=== PATIENT | male | born 1980 | race Caucasian/White ===

== ENCOUNTER 2019-12-04 17:43 | Emergency (ER) | payer OTHER ==
[2019-12-04 18:00] VITALS: BP 129/82; PULSE 63; RESP 18; TEMP 98.2
[2019-12-04] MEDS ORDERED: LIDOCAINE 1% INJ 10MG/ML (20 ML MDV) SQ ONE (18:24)
--- NOTE | 2019-12-04 18:34 | ED ---
Wound/Laceration HPI - General Chief Complaint: Wound/Laceration Stated Complaint: Finger laceration Time Seen by Provider: 12/04/19 18:12 Source: patient, RN notes reviewed, old records reviewed Mode of arrival: ambulatory Limitations: no limitations - History of Present Illness Initial Comments: Patient is a 38-year-old male presents returns today with a laceration involving the right hand between the web space of the fourth and fifth digit after cutting it on a bult on the edge of his pool. Patient TDAP is up to date from urgent care today, whom sent him here. Patient has full ROM of the finger and denies diminished sensation. - Related Data Previous Rx's Medication Instructions Recorded Cephalexin [Keflex] 500 mg PO Q8HR #21 cap 12/04/19 Allergies Allergy/AdvReac Type Severity Reaction Status Date / Time No Known Allergies Allergy Verified 12/04/19 18:00 Review of Systems ROS Statement: Those systems with pertinent positive or pertinent negative responses have been documented in the HPI. ROS Other: All systems not noted in ROS Statement are negative. Past Medical History Past Medical History: No Reported History History of Any Multi-Drug Resistant Organisms: None Reported Past Surgical History: No Surgical Hx Reported Past Psychological History: No Psychological Hx Reported Smoking Status: Current every day smoker Past Alcohol Use History: Rare Past Drug Use History: None Reported General Exam - General Exam Comments Initial Comments: 38 year old male Limitations: no limitations General appearance: alert, in no apparent distress Head exam: Present: atraumatic, normocephalic, normal inspection Eye exam: Present: normal appearance ENT exam: Present: normal exam Neck exam: Present: normal inspection. Absent: tenderness, meningismus, lymphadenopathy Respiratory exam: Present: normal lung sounds bilaterally. Absent: respiratory distress, wheezes, rales, rhonchi, stridor Cardiovascular Exam: Present: regular rate, normal rhythm, normal heart sounds. Absent: systolic murmur, diastolic murmur, rubs, gallop, clicks GI/Abdominal exam: Present: soft, normal bowel sounds. Absent: distended, tenderness, guarding, rebound, rigid Extremities exam: Present: normal inspection, full ROM, normal capillary refill. Absent: tenderness, pedal edema, joint swelling, calf tenderness Right Forearm Wrist exam: Present: normal inspection, full ROM Hand Wrist exam: Present: normal inspection, laceration (web space 4th and 5th digit. 2cm, linear and deep) Back exam: Present: normal inspection Neurological exam: Present: alert, oriented X3, CN II-XII intact Course Vital Signs 12/04/19 12/04/19 17:56 19:46 Temperature 98.2 F 98.2 F Pulse Rate 63 63 Respiratory 18 18 Rate Blood Pressure 129/82 129/82 O2 Sat by Pulse 100 100 Oximetry Procedures - Laceration Laceration #1 Site: hand (4th 5th digit webspace) Size (cm): 2 Description: linear Depth: simple, single layer Anesthetic Used: lidocaine 1% Anesthesia Technique: local infiltration Amount (mls): 4 Pre-repair: wound explored, irrigated extensively Type of Sutures: nylon, vicryl Size of Sutures: 5-0 Number of Sutures: 9 Technique: simple, interrupted Patient Tolerated Procedure: well, no complications, other (2 internal suture, 7 external) Medical Decision Making - Medical Decision Making 38 year old male with hand laceration that was irrigated, closed with 9 sutures in total, and bandage. Xray shows no foreign body and has full ROM and sensation of fingers. No tendion involvement in laceration. Advised follow up with PCP and given keflex for infection prevention. - Radiology Data Radiology results: report reviewed Hand xray shows laceration deformity, no facture or foreign body. Disposition Clinical Impression: Finger laceration Disposition: HOME SELF-CARE Condition: Good Instructions (If sedation given, give patient instructions): Care For Your Stitches (ED), Laceration (ED) Additional Instructions: Please return to the emergency room in 8-10 days to have sutures removed. Please leave wound covered for the first 24-48 hours and then leave open to air after that time. Please use clean soap and water to clean the suture area to prevent scabbing over the top of your sutures. Please watch for any signs of infection which may include but not limited to increased pain, swelling, redness, fever or chills. Please return to the emergency room if any signs of infection do occur. Please return to the emergency room for any other concerns or complications. Prescriptions: Cephalexin [Keflex] 500 mg PO Q8HR #21 cap Is patient prescribed a controlled substance at d/c from ED?: No Referrals: None,Stated [Primary Care Provider] - 1-2 days Time of Disposition: 19:36
--- NOTE | 2019-12-04 18:36 | XR ---
EXAMINATION TYPE: XR hand complete RT DATE OF EXAM: 12/04/2019 COMPARISON: NONE HISTORY: Laceration TECHNIQUE: 3 views FINDINGS: There is soft tissue linear density on the lateral aspect of the base of the proximal phala nx of the little finger consistent with laceration. There is no fracture nor dislocation. Joint space s are normal. IMPRESSION: Laceration deformity of the base of the little finger. No fracture seen. No sign of a for eign body.
[2019-12-04] MEDS ORDERED: ACET/COD 300 MG/30 MG STARTER PACK 6 TAB BTL PO STA (19:36)
[2019-12-04] MEDS ORDERED: CEPHALEXIN 500MG STARTER PACK 4 CAP BTL PO STA (19:36)
== END 2019-12-04 19:48 | disposition home or self-care (01) ==
LOC: EC 17:43
DX: S61.218A Laceration without foreign body of other finger without damage to nail, initial encounter (principal); F17.200 Nicotine dependence, unspecified, uncomplicated; W26.8XXA Contact with other sharp object(s), not elsewhere classified, initial encounter; Y93.11 Activity, swimming; Y92.34 Swimming pool (public) as the place of occurrence of the external cause
CPT/HCPCS: 73130; 99283; 12001; J2001

== ENCOUNTER 2024-03-16 12:03 | Emergency (ER) | payer OTHER ==
[2024-03-16 13:43] LABS: Basophils % (A) 0 %; Eosinophils # (A) 0.2 k/uL (0-0.7); Eosinophils % (A) 3 %; HCT 43.8 % (39.0-53.0); HGB 14.8 gm/dL (13.0-17.5); Lymphocytes # (A) 1.2 k/uL (1.0-4.8); Lymphocytes % (A) 19 %; MCH 30.6 pg (25.0-35.0); MCHC 33.8 g/dL (31.0-37.0); MCV 90.6 fL (80.0-100.0); Mean Platelet Volume 7.1; Monocytes # (A) 0.4 k/uL (0-1.0); Monocytes % (A) 7 %; Neutrophils # (A) 4.3 k/uL (1.3-7.7); Neutrophils % (A) 69 %; Platelet Count 227 k/uL (150-450); RBC 4.83 m/uL (4.30-5.90); RDW 13.1 % (11.5-15.5); WBC 6.2 k/uL (3.8-10.6)
--- NOTE | 2024-03-16 13:44 | ED ---
General Adult HPI - General Chief complaint: Skin/Abscess/Foreign Body Stated complaint: Urogenital Time Seen by Provider: 03/16/24 13:01 Source: patient Mode of arrival: ambulatory Limitations: no limitations - History of Present Illness Initial comments: 43-year-old male presenting with chief complaint of a "boil" to his right glute. This has been present for a few weeks. He states that it will repeatedly open and drain and then swells back up. It opened while he was in the waiting room and is actively draining. He is having no fevers. No history of abscesses. He has not been on any antibiotics. No fevers. No abdominal pain. No nausea or v omiting. - Related Data Previous Rx's Medication Instructions Recorded Cephalexin [Keflex] 500 mg PO Q8HR #21 cap 12/04/19 Amoxic-Pot Clav 875-125Mg 1 tab PO Q12HR 7 Days #14 tab 03/16/24 [Augmentin 875-125] Sulfamethox-Tmp 800-160Mg [Bactrim 1 tab PO Q12HR 7 Days #14 tab 03/16/24 DS 800-160 mg] Allergies Allergy/AdvReac Type Severity Reaction Status Date / Time No Known Allergies Allergy Verified 03/16/24 12:07 Review of Systems ROS Statement: Those systems with pertinent positive or pertinent negative responses have been documented in the HPI. ROS Other: All systems not noted in ROS Statement are negative. Past Medical History Past Medical History: No Reported History History of Any Multi-Drug Resistant Organisms: None Reported Past Surgical History: No Surgical Hx Reported Past Psychological History: No Psychological Hx Reported Smoking Status: Light tobacco smoker Past Alcohol Use History: Rare Past Drug Use History: None Reported General Exam Limitations: no limitations General appearance: alert, in no apparent distress Head exam: Present: atraumatic, normocephalic Eye exam: Present: normal appearance, EOMI Neck exam: Present: normal inspection. Absent: meningismus Respiratory exam: Absent: respiratory distress Cardiovascular Exam: Present: regular rate Neurological exam: Present: alert, oriented X3 Psychiatric exam: Present: normal affect, normal mood Expanded Type of lesion: Present: abscess (Right buttock) Course Vital Signs 03/16/24 03/16/24 12:04 15:27 Temperature 98 F 98.9 F Pulse Rate 95 60 Respiratory 16 18 Rate Blood Pressure 117/78 125/77 O2 Sat by Pulse 98 97 Oximetry Medical Decision Making - Medical Decision Making Was pt. sent in by a medical professional or institution ([facility], HOSPITAL MORTICIAN, urgent care, hospital, or snf...) When possible be specific @ -No Did you speak to anyone other than the patient for history (EMS, parent, family, police, friend...)? What history was obtained from this source @ -No Did you review nursing and triage notes (agree or disagree)? Why? @ -I reviewed and agree with nursing and triage notes Were old charts reviewed (outside hosp., previous admission, EMS record, old EKG, old radiological studies, urgent care reports/EKG's, snf records)? Report findings @ -No old charts were reviewed Differential Diagnosis (chest pain, altered mental status, abdominal pain women, abdominal pain men, vaginal bleeding, weakness, fever, dyspnea, syncope, headache, dizziness, GI bleed, back pain, seizure, CVA, palpatations, mental health, musculoskeletal)? @ -Differential includes cyst, abscess, cellulitis, this is not an all- inclusive list EKG interpreted by me (3pts min.). @ -As above X-rays interpreted by me (1pt min.). @ -None done CT interpreted by me (1pt min.). @ -CT shows 3.6 x 2.0 perirectal abscess. No other significant abnormality U/S interpreted by me (1pt. min.). @ -None done What testing was considered but not performed or refused? (CT, X-rays, U/S, labs)? Why? @ -None What meds were considered but not given or refused? Why? @ -None Did you discuss the management of the patient with other professionals (professionals i.e. [facility], HOSPITAL MORTICIAN, lab, RT, psych nurse, social organization professor, candy dipper hand, teacher, environmental compliance officer, patient case coordinator)? Give summary @ -Dr. Cuellar was present in the ER, I explained to him the case and findings, he states that if the wound is open and draining and the patient wants to go home he is able to be discharged Was smoking cessation discussed for >3mins.? @ -No Was critical care preformed (if so, how long)? @ -No Were there social determinants of health that impacted care today? How? (Homelessness, low income, unemployed, alcoholism, drug addiction, transportation, low edu. Level, literacy, decrease access to med. care, fdc, rehab)? @ -No Was there de-escalation of care discussed even if they declined (Discuss DNR or withdrawal of care, Hospice)? DNR status @ -No What co-morbidities impacted this encounter? (DM, HTN, Smoking, COPD, CAD, Cancer, CVA, ARF, Chemo, Hep., AIDS, mental health diagnosis, sleep apnea, morbid obesity)? @ -None Was patient admitted / discharged? Hospital course, mention meds given and route, prescriptions, significant lab abnormalities, going to OR and other per tinent info. @ -43-year-old male presenting with chief complaint of painful and draining bump to the right buttock. Has been recurrent over the past several days. On exam there is a fluctuant mass with serosanguineous drainage. CT is obtained which shows findings consistent with a 3.6 x 2.0 perirectal abscess with no other significant abnormality. Dr. Cuellar was present in the ER and I explained to him the case and findings. States that if the abscess is draining and the patient wants to go home he may be discharged. Patient is educated on today's findings. Started on Augmentin and Bactrim and educated on wound care. Instructed to follow-up with general surgery. Discharged. Follow-up with PCP. Report back to ER with any new or worsening symptoms. Discussed return parameters and answered all questions. Patient conveyed verbal understanding and agreed to the plan. I discussed this case in detail with my attending Dr. Kan Undiagnosed new problem with uncertain prognosis? @ -No Drug Therapy requiring intensive monitoring for toxicity (Heparin, Nitro, Insulin, Cardizem)? @ -No Were any procedures done? @ -No Diagnosis/symptom? @ -perirectal abscess Acute, or Chronic, or Acute on Chronic? @ -Acute Uncomplicated (without systemic symptoms) or Complicated (systemic symptoms)? @ -Uncomplicated Side effects of treatment? @ -No Exacerbation, Progression, or Severe Exacerbation? @ -No - Lab Data Result diagrams: 03/16/24 13:33 03/16/24 13:33 Lab Results 03/16/24 03/16/24 Range/Units 13:33 13:33 WBC 6.2 (3.8-10.6) k/uL RBC 4.83 (4.30-5.90) m/uL Hgb 14.8 (13.0-17.5) gm/dL Hct 43.8 (39.0-53.0) % MCV 90.6 (80.0-100.0) fL MCH 30.6 (25.0-35.0) pg MCHC 33.8 (31.0-37.0) g/dL RDW 13.1 (11.5-15.5) % Plt Count 227 (150-450) k/uL MPV 7.1 Neutrophils % 69 % Lymphocytes % 19 % Monocytes % 7 % Eosinophils % 3 % Basophils % 0 % Neutrophils # 4.3 (1.3-7.7) k/uL Lymphocytes # 1.2 (1.0-4.8) k/uL Monocytes # 0.4 (0-1.0) k/uL Eosinophils # 0.2 (0-0.7) k/uL Basophils # 0.0 (0-0.2) k/uL Sodium 140 (137-145) mmol/L Potassium 4.8 (3.5-5.1) mmol/L Chloride 107 (98-107) mmol/L Carbon Dioxide 28 (22-30) mmol/L Anion Gap 5 mmol/L BUN 15 (9-20) mg/dL Creatinine 0.68 (0.66-1.25) mg/dL Est GFR (CKD-EPI)AfAm >90 (>60 ml/min/1.73 sqM) Est GFR (CKD-EPI)NonAf >90 (>60 ml/min/1.73 sqM) Glucose 101 H (74-99) mg/dL Calcium 9.0 (8.4-10.2) mg/dL Total Bilirubin 0.5 (0.2-1.3) mg/dL AST 23 (17-59) U/L ALT 17 (4-49) U/L Alkaline Phosphatase 41 (38-126) U/L Total Protein 6.8 (6.3-8.2) g/dL Albumin 4.1 (3.5-5.0) g/dL Disposition Clinical Impression: Perirectal abscess Disposition: HOME SELF-CARE Condition: Good Instructions (If sedation given, give patient instructions): Anorectal Abscess and Anal Fistula (ED) Additional Instructions: Follow-up with general surgery. Report back to ER with any new or worsening symptoms. Medication as prescribed. Use warm compresses on the area 4-6 times per day, followed by trying to express any fluid at the surface Prescriptions: Amoxic-Pot Clav 875-125Mg [Augmentin 875-125] 1 tab PO Q12HR 7 Days #14 tab Sulfamethox-Tmp 800-160Mg [Bactrim DS 800-160 mg] 1 tab PO Q12HR 7 Days #14 tab Is patient prescribed a controlled substance at d/c from ED?: No Referrals: None,Stated [Primary Care Provider] - 1-2 days Sander Cuellar DO [Doctor of Osteopathic Medicine] - 1-2 days Time of Disposition: 14:40
[2024-03-16 13:52] LABS: ALT 17 U/L (4-49); AST 23 U/L (17-59); African American GFR (CKD) >90 (>60 ml/min/1.73 sqM); Albumin 4.1 g/dL (3.5-5.0); Alkaline Phosphatase 41 U/L (38-126); Anion Gap 5 mmol/L; Blood Urea Nitrogen 15 mg/dL (9-20); Carbon Dioxide 28 mmol/L (22-30); Chloride 107 mmol/L (98-107); Glucose 101 mg/dL (74-99); Non-African American GFR(CKD) >90 (>60 ml/min/1.73 sqM); Potassium 4.8 mmol/L (3.5-5.1); Sodium 140 mmol/L (137-145); Total Bilirubin 0.5 mg/dL (0.2-1.3); Total Protein 6.8 g/dL (6.3-8.2)
--- NOTE | 2024-03-16 14:14 | CT ---
CT pelvis with contrast HISTORY: Rule out perirectal abscess. COMPARISON: None TECHNIQUE: Multiple axial images are obtained through the pelvis following the uneventful administrat ion of nonionic IV contrast material. FINDINGS: There is a 3.6 x 2.0 cm mass with central decreased density. Findings consistent with a right-sided p erirectal abscess. The visualized bowel loops within the abdomen are normal without dilatation or obstruction. There are no pelvic adenopathy. The prostate gland is normal in size. Visualized osseous structures are intact. IMPRESSION: Findings consistent with a 3.6 x 2.0 perirectal abscess. No other significant abnormality. [facility], , 03/16/2024 2:12 PM
[2024-03-16] MEDS: AMOXIC-POT CLAV 875-125MG 1 EACH TAB PO STA (14:52)
[2024-03-16] MEDS: SULFAMETHOX-TMP 800-160MG 1 EACH TAB PO STA (14:52)
[2024-03-16 15:29] VITALS: BP 125/77; PULSE 60; RESP 18; TEMP 98.9
== END 2024-03-16 15:28 | disposition home or self-care (01) ==
LOC: EC 12:03
CPT/HCPCS: 36415; 72193; 80053; 85025; 87070; 87205; 99284

== ENCOUNTER → 2024-03-25 | Outpatient (CLI) | payer OTHER ==
--- NOTE | 2024-03-25 18:02 | CT ---
EXAMINATION TYPE: CT soft tissue neck w con DATE OF EXAM: 03/25/2024 COMPARISON: None HISTORY: Lump on neck for 6-9 months, marked by radiopaque BB. CT DLP: 439.4 mGycm CONTRAST: Patient injected with 100 ml mL of Isovue 370. TECHNIQUE: Axial images at 3 mm thick sections. Reconstructed images in the coronal plane and sagitt al plane are reviewed. FINDINGS: Limited CT sections are obtained the lung apices. The lung apices appear clear. CT neck: The torus tubarius and fossa of Rosenmuller are normal. Educational Assistant spaces are normal. Para nasal sinuses and mastoid air cells are clear. Parotid glands appear normal and symmetrical. Submandibular glands, are normal. Parapharyngeal spac es are normal. No suspicious adenopathy is evident. The hypopharynx appears within normal limits. BB is placed near the right anterior hyoid near the level of the larynx. Vocal cord level appears unr emarkable. No subcutaneous abnormality is evident. No mass is evident. Thyroid as visualized is normal. Osseous structures are normal. IMPRESSION: 1. No suspicious abnormality to account for lump on neck [facility], , 03/25/2024 6:00 PM
== END | disposition home or self-care (01) ==
LOC: RADCTMAIN 14:27
PROVIDERS: ATTEND Family Medicine
DX: R22.1 Localized swelling, mass and lump, neck (principal)
CPT/HCPCS: 70491

== ENCOUNTER 2024-04-05 22:26 | Observation (INO) | payer OTHER ==
--- NOTE | 2024-04-05 22:53 | ED ---
Skin/Abscess/FB HPI - General Source: patient, RN notes reviewed Mode of arrival: ambulatory Limitations: no limitations - History of Present Illness MD complaint: abscess/boil Onset/Timin -: month(s) Location: buttocks Severity scale (1-10): 8 Quality: sharp Consistency: intermittent Worsens with: palpation Treatments Prior to Arrival: antibiotic <Omkar Waldrop - Last Filed: 04/05/24 22:49> <Basil Acevedo - Last Filed: 04/06/24 01:27> - General Chief complaint: Skin/Abscess/Foreign Body Stated complaint: Back Pain - Abcess Time Seen by Provider: 04/05/24 22:40 - History of Present Illness Initial comments: Quick note: This is a 43-year-old male presenting with cyst/abscess of his right glued x 1 month. Patient was seen in this ER on 03/16 for the same complaint. Patient states abscess was not drained due to the spontaneous drainage already occurring. Sent home with Augmentin and Bactrim, which she completed. Patient states he has seen a surgeon 5 days ago where he advised of possible anal fistula noted on CT. Patient states he was advised at that time that his symptoms worsened he may need to be admitted for surgery for drainage. Patient states symptoms began to resolve with antibiotics and warm compresses until cyst began becoming more red and larger 2 days ago. Patient states pain has become sharp and pulsating in the past day. Patient rates pain 8 out of 10. Patient denies fever, chills constipation, diarrhea, urinary symptoms. (Omkar Waldrop) - Related Data Previous Rx's Medication Instructions Recorded Cephalexin [Keflex] 500 mg PO Q8HR #21 cap 12/04/19 Amoxic-Pot Clav 875-125Mg 1 tab PO Q12HR 7 Days #14 tab 03/16/24 [Augmentin 875-125] Sulfamethox-Tmp 800-160Mg [Bactrim 1 tab PO Q12HR 7 Days #14 tab 03/16/24 DS 800-160 mg] Allergies Allergy/AdvReac Type Severity Reaction Status Date / Time No Known Allergies Allergy Verified 04/05/24 22:35 Review of Systems ROS Other: All systems not noted in ROS Statement are negative. <Omkar Waldrop - Last Filed: 04/05/24 22:49> ROS Other: All systems not noted in ROS Statement are negative. <Basil Acevedo - Last Filed: 04/06/24 01:27> ROS Statement: Those systems with pertinent positive or pertinent negative responses have been documented in the HPI. Past Medical History Past Medical History: No Reported History History of Any Multi-Drug Resistant Organisms: None Reported Past Surgical History: No Surgical Hx Reported Past Psychological History: No Psychological Hx Reported Smoking Status: Light tobacco smoker Past Alcohol Use History: Rare Past Drug Use History: None Reported <Omkar Waldrop - Last Filed: 04/05/24 22:49> General Exam Limitations: no limitations <Omkar Waldrop - Last Filed: 04/05/24 22:49> General appearance: alert, in no apparent distress Head exam: Present: atraumatic, normocephalic Eye exam: Present: normal appearance, EOMI Neck exam: Present: normal inspection. Absent: meningismus Respiratory exam: Absent: respiratory distress Cardiovascular Exam: Present: regular rate Rectal exam: Present: other (Perirectal abscess) Neurological exam: Present: alert, oriented X3 Psychiatric exam: Present: normal affect, normal mood Expanded Type of lesion: Present: abscess <Basil Acevedo - Last Filed: 04/06/24 01:27> - General Exam Comments Initial Comments: Visual Physical Exam Vital signs reviewed General: Well-appearing, nontoxic, no acute distress. Patient appears to be leaning to left, voiding blood pressure on affected gluteus. Head: Normocephalic, atraumatic Eyes: PERRLA, EOMI ENT: Airway patent Chest: Nonlabored breathing Skin: No visual rash, normal skin tone Neuro: Alert and oriented 3 Musculoskeletal: No gross abnormalities (Omkar Waldrop) Course Vital Signs 04/05/24 22:32 Temperature 98.8 F Pulse Rate 78 Respiratory 18 Rate Blood Pressure 129/90 O2 Sat by Pulse 97 Oximetry Medical Decision Making <Omkar Waldrop - Last Filed: 04/05/24 22:49> - Lab Data Result diagrams: 04/06/24 00:17 04/06/24 00:17 <Basil Acevedo - Last Filed: 04/06/24 01:27> - Medical Decision Making I completed the quick note portion of this chart signed TAYLA Silver (Omkar Waldrop) Was pt. sent in by a medical professional or institution ([facility], [employer]ICAL [employer]OL PROGRAMMER, urgent care, hospital, or fci...) When possible be specific @ -No Did you speak to anyone other than the patient for history (EMS, parent, family, police, friend...)? What history was obtained from this source @ -No Did you review nursing and triage notes (agree or disagree)? Why? @ -I reviewed and agree with nursing and triage notes Were old charts reviewed (outside hosp., previous admission, EMS record, old EKG, old radiological studies, urgent care reports/EKG's, fci records)? Report findings @ -No old charts were reviewed Differential Diagnosis (chest pain, altered mental status, abdominal pain women, abdominal pain men, vaginal bleeding, weakness, fever, dyspnea, syncope, headache, dizziness, GI bleed, back pain, seizure, CVA, palpatations, mental health, musculoskeletal)? @ -Differential includes abscess, fistula, cyst, this is not an all-inclusive list EKG interpreted by me (3pts min.). @ -As above X-rays interpreted by me (1pt min.). @ -None done CT interpreted by me (1pt min.). @ -None done U/S interpreted by me (1pt. min.). @ -Ultrasound shows persistent nonsimple thick-walled fluid collection likely reflecting abscess in the right gluteal region measuring slightly larger versus most recent prior CT What testing was considered but not performed or refused? (CT, X-rays, U/S, labs)? Why? @ -None What meds were considered but not given or refused? Why? @ -None Did you discuss the management of the patient with other professionals (professionals i.e. , ERIC, NUMERICAL TOOL PROGRAMMER, lab, RT, psych nurse, social work faculty member, orthotics technician, teacher, community liaison officer, case picker)? Give summary @ -I spoke with Dr. Lindsey, he advises repeat CT and he will see the patient on consult I spoke with Susi Stauffer from [facility] who accepts admission Was smoking cessation discussed for >3mins.? @ -No Was critical care preformed (if so, how long)? @ -No Were there social determinants of health that impacted care today? How? (Homelessness, low income, unemployed, alcoholism, drug addiction, transportation, low edu. Level, literacy, decrease access to med. care, [facility], rehab)? @ -No Was there de-escalation of care discussed even if they declined (Discuss DNR or withdrawal of care, Hospice)? DNR status @ -No What co-morbidities impacted this encounter? (DM, HTN, Smoking, COPD, CAD, Cancer, CVA, ARF, Chemo, Hep., AIDS, mental health diagnosis, sleep apnea, morbid obesity)? @ -None Was patient admitted / discharged? Hospital course, mention meds given and route, prescriptions, significant lab abnormalities, going to OR and other p ertinent info. @ -43-year-old male presenting with chief complaint of worsening abscess. Patient was previously diagnosed with a perirectal abscess, followed up with Dr. Cuellar in the office and was told if symptoms worsen he should report to the ER for possible surgical drainage. States that over the past few days he has had worsening pulsating pain and has noticed increased swelling. It is not draining at this time. No fever or vomiting. Workup was initiated by triage, the patient was later placed in a room and evaluated by myself. Ultrasound ordered by [facility] confirms abscess. Lab work is essentially unremarkable. Repeat CT is ordered. Patient is started on vancomycin and Zosyn. Admitted with general surgery on consult. Patient is agreeable with this plan. I discussed this case with my attending Dr. Luciano Undiagnosed new problem with uncertain prognosis? @ -No Drug Therapy requiring intensive monitoring for toxicity (Heparin, Nitro, Insulin, Cardizem)? @ -No Were any procedures done? @ -No Diagnosis/symptom? @ -Perirectal abscess Acute, or Chronic, or Acute on Chronic? @ -Acute Uncomplicated (without systemic symptoms) or Complicated (systemic symptoms)? @ -Complicated Side effects of treatment? @ -No Exacerbation, Progression, or Severe Exacerbation? @ -No Poses a threat to life or bodily function? How? (Chest pain, [place], [place], pneumonia, PE, COPD, DKA, ARF, appy, cholecystitis, CVA, Diverticulitis, Homicidal, Suicidal, threat to staff... and all critical care pts) @ -Yes (Basil Acevedo) Disposition <Omkar Waldrop - Last Filed: 04/05/24 22:49> Time of Disposition: 00:48 <Basil Acevedo - Last Filed: 04/06/24 01:27> Clinical Impression: Perirectal abscess Disposition: ADMITTED IP TO THIS HOSP Condition: Fair
--- NOTE | 2024-04-05 23:38 | US ---
EXAMINATION TYPE: US extremity nonvasc mass RT DATE OF EXAM: 04/05/2024 COMPARISON: Pelvic CT March 16, 2024 CLINICAL INDICATION: Male, 43 years old with history of Right gluteal abscess; Intermittent right glu teal abscess x 1 month, worse within last 2 days, painful, redness TECHNIQUE: FINDINGS: scanned area of concern, right buttocks, complex anechoic lesion = 5.1 x 3.1 x 4.6cm IMPRESSION: Persistent nonsimple thick-walled fluid collection likely reflecting abscess in the righ t gluteal region is measuring slightly larger versus most recent prior CT [facility], , 04/05/2024 11:35 PM
[2024-04-06] MEDS ORDERED: VANCOMYCIN IV PER PHARMACY 1 EACH MISC MISCELLANE PRN (00:04)
[2024-04-06] MEDS ORDERED: NALOXONE 0.4 MG/ML 1 ML VIAL IV PRN (00:46)
[2024-04-06 00:53] LABS: Basophils % (A) 0 %; Eosinophils # (A) 0.2 k/uL (0-0.7); Eosinophils % (A) 2 %; HCT 44.8 % (39.0-53.0); HGB 14.3 gm/dL (13.0-17.5); Lymphocytes % (A) 25 %; MCH 29.4 pg (25.0-35.0); MCHC 31.9 g/dL (31.0-37.0); MCV 92.3 fL (80.0-100.0); Mean Platelet Volume 7.4; Monocytes # (A) 0.5 k/uL (0-1.0); Monocytes % (A) 6 %; Neutrophils # (A) 5.2 k/uL (1.3-7.7); Neutrophils % (A) 65 %; Platelet Count 228 k/uL (150-450); RBC 4.85 m/uL (4.30-5.90); RDW 13.2 % (11.5-15.5); WBC 8.1 k/uL (3.8-10.6)
[2024-04-06] MEDS: KETOROLAC 15 MG/ML 1 ML VIAL IVP STA (00:54)
[2024-04-06] MEDS: PIPERACILLIN-TAZOBACTAM 3.375 GM in SODIUM CHLORIDE 0.9% 100 ML IVPB STA (00:56)
[2024-04-06 01:04] LABS: ALT 22 U/L (4-49); AST 35 U/L (17-59); African American GFR (CKD) >90 (>60 ml/min/1.73 sqM); Albumin 4.4 g/dL (3.5-5.0); Alkaline Phosphatase 45 U/L (38-126); Anion Gap 6 mmol/L; Blood Urea Nitrogen 14 mg/dL (9-20); Calcium 8.7 mg/dL (8.4-10.2); Carbon Dioxide 27 mmol/L (22-30); Chloride 106 mmol/L (98-107); Glucose 79 mg/dL (74-99); Non-African American GFR(CKD) >90 (>60 ml/min/1.73 sqM); Potassium 4.3 mmol/L (3.5-5.1); Sodium 139 mmol/L (137-145); Total Bilirubin 0.7 mg/dL (0.2-1.3); Total Protein 7.1 g/dL (6.3-8.2)
[2024-04-06] MEDS: VANCOMYCIN 1,500 MG in SODIUM CHLORIDE 0.9% 250 ML IVPB SCH (01:58)
[2024-04-06] MEDS: MORPHINE SULFATE 4 MG/ML SYRINGE IV PRN (02:28)
--- NOTE | 2024-04-06 04:47 | P.CON ---
Consult Note - . Consult date: 04/06/24 Assessment/Plan:: This is a 43-year-old male presenting with cyst/abscess of his right gluteal region x 1 month. Patient was seen in this ER on 03/16 for the same complaint. Patient states abscess was not drained due to the spontaneous drainage already o ccurring. Sent home with Augmentin and Bactrim, which he completed. Patient states he has seen a surgeon 5 days ago where he advised of possible anal fistula noted on CT. Patient states he was advised at that time that his symptoms worsened he may need to be admitted for surgery for drainage. Patient states symptoms began to resolve with antibiotics and warm compresses until cyst began becoming more red and larger 2 days ago. Patient states pain has become sharp and pulsating in the past day. Patient rates pain 8 out of 10. Patient denies fever, chills constipation, diarrhea, urinary symptoms. Review of Systems Those systems with pertinent positive or pertinent negative responses have been documented in the HPI. Past Medical History Past Medical History: No Reported History History of Any Multi-Drug Resistant Organisms: None Reported Past Surgical History: No Surgical Hx Reported Past Psychological History: No Psychological Hx Reported Smoking Status: Light tobacco smoker Past Alcohol Use History: Rare Past Drug Use History: None Reported General Exam Limitations: no limitations General appearance: alert, in no apparent distress Head exam: Present: atraumatic, normocephalic Eye exam: Present: normal appearance, EOMI Neck exam: Present: normal inspection. Absent: meningismus Respiratory exam: Absent: respiratory distress Cardiovascular Exam: Present: regular rate Rectal exam: Present: other (Perirectal abscess) Neurological exam: Present: alert, oriented X3 Psychiatric exam: Present: normal affect, normal mood Expanded Type of lesion: Present: abscess 43 year old male with recurrent draining perirectal abscess - CT Pelvis ordered - Vancomycin - Regular Diet, NPO/midnight in case Incision and Drainage required. - Further recs to follow Alex Lindsey DO [facility] [phone]
--- NOTE | 2024-04-06 04:56 | CT ---
EXAMINATION TYPE: CT pelvis w con DATE OF EXAM: 04/06/2024 COMPARISON: Prior CT March 16, 2024. Targeted ultrasound one day earlier. HISTORY: cyst on right buttocks. Last seen on 03/16 for same issue, last time it drained on it's own a nd pt was sent home w/ antibiotics. pt feels its worse now and is in more pain. CT DLP: 310.9 mGycm Automated exposure control for dose reduction was used. CONTRAST: Performed with IV Contrast, patient injected with 100 mL of Isovue 300. FINDINGS: Thin-walled fluid collection abutting the skin surface right gluteal region is redemonstrated and is confirmed slightly larger in size measuring 4.1 x 3.3 x 3.8 cm axial image 45 and coronal image 78 in creased from 3.6 x 2.0 x 2.[address] Mild to moderate adjacent surrounding fat stranding brown ins present. No suspicious bowel dilatation. Osseous structures are intact. IMPRESSION: Confirmation of some interval enlargement of the right perirectal abscess as detailed abo ve as suspected on recent ultrasound. [facility], , 04/06/2024 4:54 AM
[2024-04-06 09:50] LABS: Basophils # (A) 0.02 X 10*3/uL (0.00-0.10); Basophils % (A) 0.3 %; Eosinophils # (A) 0.22 X 10*3/uL (0.04-0.35); Eosinophils % (A) 3.6 %; HCT 39.8 % (39.6-50.0); HGB 13.6 g/dL (13.0-17.0); Lymphocytes # (A) 2.14 X 10*3/uL (0.90-5.00); MCH 30.8 pg (27.0-32.0); MCHC 34.2 g/dL (32.0-37.0); Mean Platelet Volume 9.8 FL (9.5-12.2); Monocytes # (A) 0.48 X 10*3/uL (0.20-1.00); Monocytes % (A) 7.9 %; NRBC Per 100 WBC 0 X 10*3/uL (0.00-0.01); Neutrophils # (A) 3.24 X 10*3/uL (1.80-7.70); Platelet Count 188 X 10*3/uL (140-440); RBC 4.42 X 10*6/uL (4.40-5.60); RDW 13.2 % (11.5-14.5); WBC 6.11 X 10*3/uL (4.50-10.00)
[2024-04-06 09:58] LABS: BUN/Creat Ratio 17.71 Ratio (12.00-20.00); Blood Urea Nitrogen 12.4 mg/dL (9.0-27.0); Calcium 8.3 mg/dL (8.7-10.3); Carbon Dioxide 25.4 mmol/L (21.6-31.8); Chloride 104 mmol/L (96-109); Glucose 83 mg/dL (70-110); Sodium 138 mmol/L (135-145)
--- NOTE | 2024-04-06 14:17 | P.HPIM ---
History of Present Illness This is a pleasant 43 years old male who presents with worsening right buttock abscess, he has been having it for about a month as he states and he was treating it without surgical intervention by squeezing and topical agents. However over the last few days it was getting slightly worse and slightly bigger and painful so he came to emergency room. He denies any other new complaint. He is walking freely normally in his room. He smokes few cigarettes occasionally, he cut down from much smoking before. No alcohol or illicit drugs. Patient was counseled to quit smoking and he agrees. But he declines nicotine patch. He is afebrile Labs reviewed were unremarkable Pelvic CT showing some interval enlargement of the right perirectal abscess He was started on IV vancomycin and normal saline Review of Systems Review of systems CONSTITUTIONAL: No fever, no malaise, no fatigue. HEENT: No recent visual problems or hearing problems. Denied any sore throat. CARDIOVASCULAR: No orthopnea, PND, no palpitations, no syncope. PULMONARY: No shortness of breath, no cough, no hemoptysis. GASTROINTESTINAL: No diarrhea, no nausea, no vomiting, no abdominal pain. Normoactive bowel sounds. NEUROLOGICAL: No headaches, no weakness, no numbness. HEMATOLOGICAL: Denies any bleeding or petechiae. GENITOURINARY: Denies any burning micturition, frequency, or urgency. MUSCULOSKELETAL/RHEUMATOLOGICAL: Denies any joint pain, swelling, or any muscle pain. ENDOCRINE: Denies any polyuria or polydipsia. Past Medical History Past Medical History: No Reported History History of Any Multi-Drug Resistant Organisms: None Reported Past Surgical History: No Surgical Hx Reported Past Psychological History: No Psychological Hx Reported Smoking Status: Light tobacco smoker Past Alcohol Use History: Rare Past Drug Use History: None Reported Medications and Allergies Home Medications Medication Instructions Recorded Confirmed Type No Known Home Medications 04/06/24 04/06/24 History Allergies Allergy/AdvReac Type Severity Reaction Status Date / Time No Known Allergies Allergy Verified 04/06/24 09:05 Physical Exam Vitals: Vital Signs Temp Pulse Resp BP Pulse Ox 04/06/24 11:27 68 20 104/64 99 04/06/24 07:30 98.2 F 78 18 102/67 99 04/06/24 02:10 97.7 F 58 L 18 129/85 98 04/05/24 22:32 98.8 F 78 18 129/90 97 Intake and Output 04/05/24 04/06/24 04/06/24 22:59 06:59 14:59 Other: Weight 79.379 kg GENERAL: The patient is alert and oriented x3, not in any acute distress. Well developed, well nourished. HEENT: Pupils are round and equally reacting to light. EOMI. No scleral icterus. No conjunctival pallor. Normocephalic, atraumatic. No pharyngeal erythema. No thyromegaly. CARDIOVASCULAR: S1 and S2 present. No murmurs, rubs, or gallops. PULMONARY: Chest is clear to auscultation, no wheezing , no crackles. -ABDOMEN: Soft, nontender, nondistended, normoactive bowel sounds. No palpable organomegaly. Abscess in the middle of the right buttocks close to the median fissure, about the size of 2 inches with no opening or purulent discharge MUSCULOSKELETAL: No joint swelling or deformity. EXTREMITIES: No cyanosis, clubbing, or pedal edema. NEUROLOGICAL: Gross neurological examination did not reveal any focal deficits. SKIN: No rashes. no petechiae. Results CBC & Chem 7: 04/06/24 06:09 04/06/24 06:09 Labs: Abnormal Lab Results - Last 24 Hours (Table) 04/06/24 04/06/24 Range/Units 00:17 06:09 Creatinine 0.65 L (0.66-1.25) mg/dL Calcium 8.3 L (8.7-10.3) mg/dL Assessment and Plan Assessment: Right perirectal abscess, failed outpatient treatment Nicotine dependence Plan: Continue with IV vancomycin Start normal saline 75 mL/h Surgical team consult GI and DVT prophylaxis
[2024-04-06] MEDS: SODIUM CHLORIDE 0.9% 1,000 ML IV SCH (15:56)
[2024-04-06] MEDS: VANCOMYCIN 1,500 MG in SODIUM CHLORIDE 0.9% 500 ML 500 ML IVPB SCH (17:16)
[2024-04-06] MEDS: KETOROLAC 15 MG/ML 1 ML VIAL IVP PRN (19:56)
[2024-04-06] MEDS: HEPARIN SODIUM,PORCINE 5,000 UNIT/ML 1 ML VIAL SQ SCH (19:56)
[2024-04-06] MEDS: FAMOTIDINE 20 MG/2 ML VIAL IV SCH (19:56)
[2024-04-07 07:58] LABS: African American GFR (CKD) >90 (>60 ml/min/1.73 sqM); Anion Gap 2 mmol/L; Blood Urea Nitrogen 15 mg/dL (9-20); Calcium 8.2 mg/dL (8.4-10.2); Carbon Dioxide 26 mmol/L (22-30); Chloride 111 mmol/L (98-107); Glucose 85 mg/dL (74-99); Non-African American GFR(CKD) >90 (>60 ml/min/1.73 sqM); Potassium 4.3 mmol/L (3.5-5.1); Sodium 139 mmol/L (137-145)
[2024-04-07] MEDS: VANCOMYCIN TROUGH DUE 1 EACH MISC MISCELLANE ONE (08:47)
--- NOTE | 2024-04-07 08:56 | P.PN ---
Subjective This is a pleasant 43 years old male who presents with worsening right buttock abscess, he has been having it for about a month as he states and he was treating it without surgical intervention by squeezing and topical agents. However over the last few days it was getting slightly worse and slightly bigger and painful so he came to emergency room. He denies any other new complaint. He is walking freely normally in his room. He smokes few cigarettes occasionally, he cut down from much smoking before. No alcohol or illicit drugs. Patient was counseled to quit smoking and he agrees. But he declines nicotine patch. He is afebrile Labs reviewed were unremarkable Pelvic CT showing some interval enlargement of the right perirectal abscess He was started on IV vancomycin and normal saline Subjective: 04/07/2024: Patient seen at bedside. No significant overnight events. Patient reports he would like to go home after the incision and drainage and not wait on the wound cultures to come back. Pertinent positives and negatives discussed above, a complete review of systems was preformed and all the other sytems were negative. Vitals Signs Reveiwed. GENERAL: The patient is alert and oriented x3, not in any acute distress. Well developed, well nourished. HEENT: Pupils are round and equally reacting to light. EOMI. No scleral icterus. No conjunctival pallor. Normocephalic, atraumatic. No pharyngeal erythema. No thyromegaly. CARDIOVASCULAR: S1 and S2 present. No murmurs, rubs, or gallops. PULMONARY: Chest is clear to auscultation, no wheezing , no crackles. -ABDOMEN: Soft, nontender, nondistended, normoactive bowel sounds. No palpable organomegaly. Abscess in the middle of the right buttocks close to the median fissure, about the size of 2 inches with no opening or purulent discharge MUSCULOSKELETAL: No joint swelling or deformity. EXTREMITIES: No cyanosis, clubbing, or pedal edema. NEUROLOGICAL: Gross neurological examination did not reveal any focal deficits. SKIN: No rashes. no petechiae. Data Reveiwed Today: Patient Labs: Sodium 139, potassium 4.3, chloride 111, creatinine 0.66, glucose 85, calcium 8.2, and vancomycin trough 21.4. Imaging: No new imaging Assesment: Right perirectal abscess, failed outpatient treatment Nicotine dependence Plan: Continue with IV vancomycin Start normal saline 75 mL/h Surgical team consult GI and DVT prophylaxis F NS 75 cc/h E none N n.p.o. after midnight A normally ambulates unassisted DVT ppx: Heparin 5000 units SQ twice daily GI ppx: Pepcid 20 mg IVP twice daily Code Status: Full code Anticipated discharge place: To home Anticipated discharge time: If no complications from the I&D, patient can be discharged on Augmentin [id number] mg twice daily 7-day course Objective - Vital Signs Vital signs: Vital Signs Temp 97.9 F 04/07/24 07:00 Pulse 57 L 04/07/24 07:00 Resp 16 04/07/24 07:00 BP 122/77 04/07/24 07:00 Pulse Ox 99 04/07/24 07:00 FiO2 Intake & Output 04/06/24 04/07/24 04/07/24 18:59 06:59 18:59 Intake Total 118 Balance 118 Weight 79.379 kg Intake: Oral 118 Other: Voiding Method Toilet Toilet # Voids 3 - Labs CBC & Chem 7: 04/06/24 06:09 04/07/24 07:27 Labs: Abnormal Lab Results - Last 24 Hours (Table) 04/06/24 04/07/24 Range/Units 06:09 07:27 Chloride 111 H (98-107) mmol/L Calcium 8.3 L 8.2 L (8.7-10.3) mg/dL
[2024-04-07] MEDS: IV FLUID CONTINUATION 1,000 ML IV ONE (14:25)
[2024-04-07] MEDS: LACTATED RINGERS 1,000 ML BAG IV STA (14:26)
[2024-04-07] MEDS: ONDANSETRON 4 MG/2 ML VIAL IVP STA (14:43)
[2024-04-07] MEDS: DEXAMETHASONE SOD PHOSPHATE 4 MG/ML 1 ML VIAL IVP STA (14:45)
[2024-04-07] MEDS ORDERED: PROPOFOL 10 MG/ML 20 ML VIAL IV ONE (14:54)
[2024-04-07] MEDS ORDERED: LIDOCAINE 1% INJ 10MG/ML (20 ML MDV) ONE (14:54)
[2024-04-07] MEDS ORDERED: fentaNYL (PF) 50 MCG/ML 2 ML AMP ONE (14:54)
[2024-04-07] MEDS ORDERED: MIDAZOLAM 2 MG/2 ML VIAL ONE (14:54)
[2024-04-07] MEDS: LIDOCAINE 2% INJ 20 MG/ML SQ ONE (15:30)
--- NOTE | 2024-04-07 15:36 | P.OP ---
Date of Procedure: 04/07/24 Preoperative Diagnosis: Perirectal Abscess Postoperative Diagnosis: Perirectal Abscess Procedure(s) Performed: 1. Rectal Exam Under Anesthesia 2. Incision and Drainage Perirectal Abscess Anesthesia: MAC Surgeon: Alex Lindsey Pathology: other (Cultures of Abscess Sent) Condition: stable Disposition: PACU Description of Procedure: The patient was brought to the operating suite. Anesthesia was given and endotracheal intubation was performed. The patient was placed in lithotomy positioned. The patient was prepped and draped in usual sterile fashion. A timeout was performed before the procedure began. A rectal exam was performed and there was no evidence of masses or fistulas. An #11 blade was used to make an incision over the fluctuant area. There was purulent fluid appreciated. I used a hemostat and my finger to break up the perirectal loculations and abscess. The abscess cavity was thoroughly irrigated. Cultures were taken of the perirectal abscess. The cavity was packed with iodoform. Sterile dressing was applied. This concluded the procedure and the patient was sent to the PACU in stable condition.
[2024-04-07] MEDS: HYDROmorphone 0.5 MG/0.5 ML SYRINGE IVP PRN (16:20)
[2024-04-08 04:29] LABS: African American GFR (CKD) >90 (>60 ml/min/1.73 sqM); Anion Gap 9 mmol/L; Blood Urea Nitrogen 16 mg/dL (9-20); Calcium 8.7 mg/dL (8.4-10.2); Carbon Dioxide 21 mmol/L (22-30); Chloride 111 mmol/L (98-107); Glucose 102 mg/dL (74-99); Non-African American GFR(CKD) >90 (>60 ml/min/1.73 sqM); Potassium 4.1 mmol/L (3.5-5.1); Sodium 141 mmol/L (137-145)
[2024-04-08 07:38] VITALS: BP 127/74; PULSE 66; RESP 16; TEMP 97.7
[2024-04-08] MEDS: HYDROcodone/APAP 10-325MG 1 EACH TAB PO PRN (08:17)
[2024-04-08 08:45] LABS: Basophils # (A) 0.02 X 10*3/uL (0.00-0.10); Basophils % (A) 0.3 %; Eosinophils # (A) 0.02 X 10*3/uL (0.04-0.35); Eosinophils % (A) 0.3 %; HCT 40.5 % (39.6-50.0); HGB 13.9 g/dL (13.0-17.0); Lymphocytes # (A) 0.98 X 10*3/uL (0.90-5.00); Lymphocytes % (A) 13.3 %; MCH 29.8 pg (27.0-32.0); MCHC 34.3 g/dL (32.0-37.0); MCV 86.7 FL (80.0-97.0); Mean Platelet Volume 10.3 FL (9.5-12.2); Monocytes # (A) 0.42 X 10*3/uL (0.20-1.00); Monocytes % (A) 5.7 %; NRBC Per 100 WBC 0 X 10*3/uL (0.00-0.01); Neutrophils # (A) 5.92 X 10*3/uL (1.80-7.70); Neutrophils % (A) 80.1 %; Platelet Count 192 X 10*3/uL (140-440); RBC 4.67 X 10*6/uL (4.40-5.60); RDW 12.9 % (11.5-14.5); WBC 7.38 X 10*3/uL (4.50-10.00)
--- NOTE | 2024-04-08 12:10 | P.PN ---
Subjective Progress Note Date: 04/08/24 CHIEF COMPLAINT: Perirectal abscess HISTORY OF PRESENT ILLNESS: Patient is postop day #1 status post incision and drainage of perirectal abscess. Patient reports his pain is improved. He is ambulating. He is afebrile. White count normal at 7.38. Patient wants to be discharged. PHYSICAL EXAM: VITAL SIGNS: Reviewed. GENERAL: Well-developed in no acute distress. SKIN: Right buttocks incision surrounding area with no no erythema. No swelling. Packing intact. ASSESSMENT: 1. Perirectal abscess status post incision and drainage PLAN: -Patient can be discharged from surgical standpoint -Discharge antibiotics per medicine service -Nursing staff to remove surgical packing today Physician Litigation Claim Representative note has been reviewed by physician. Signing provider agrees with the documented findings, assessment, and plan of care. Objective - Vital Signs Vital signs: Vital Signs Temp 97.7 F 04/08/24 07:20 Pulse 66 04/08/24 07:20 Resp 16 04/08/24 07:20 BP 127/74 04/08/24 07:20 Pulse Ox 99 04/08/24 07:20 FiO2 Intake & Output 04/07/24 04/08/24 04/08/24 18:59 06:59 18:59 Intake Total 718 118 Output Total 10 Balance 708 118 Intake: IV 600 Oral 118 118 Output: Estimated Blood Loss 10 Other: # Voids 4 3 - Labs CBC & Chem 7: 04/08/24 03:46 04/08/24 03:46 Labs: Abnormal Lab Results - Last 24 Hours (Table) 04/08/24 04/08/24 Range/Units 03:46 03:46 Eosinophils # 0.02 L (0.04-0.35) X 10*3/uL Chloride 111 H (98-107) mmol/L Carbon Dioxide 21 L (22-30) mmol/L Creatinine 0.62 L (0.66-1.25) mg/dL Glucose 102 H (74-99) mg/dL Assessment and Plan Assessment: 43 yo malw s/p perirectal abscess -stable for discharge -ok for po abx -follow up cultures Time with Patient: Less than 30
--- NOTE | 2024-04-08 15:32 | P.DS ---
Providers Date of admission: 04/06/24 00:12 Discharge Diagnosis: Right perirectal abscess, failed outpatient treatment Nicotine the Hospital Course: This is a pleasant 43 years old male who presents with worsening right buttock abscess, he has been having it for about a month as he states and he was treating it without surgical intervention by squeezing and topical agents. However over the last few days it was getting slightly worse and slightly bigger and painful so he came to emergency room. He denies any other new complaint. He is walking freely normally in his room. He smokes few cigarettes occasionally, he cut down from much smoking before. No alcohol or illicit drugs. Patient was counseled to quit smoking and he agrees. But he declines nicotine patch. He is afebrile Labs reviewed were unremarkable Pelvic CT showing some interval enlargement of the right perirectal abscess He was started on IV vancomycin and normal saline Patient admitted for further workup on perirectal abscess. 04/07/2024: Patient seen at bedside. No significant overnight events. Patient reports he would like to go home after the incision and drainage and not wait on the wound cultures to come back. 04/08/2024: Patient seen at bedside. No significant events overnight. Patient would like to go home. Currently on IV vancomycin. Patient was cleared by surgery. IV vancomycin will be converted to Augmentin [id number] p.o. twice daily for 7 days. Patient also to be discharged with [place] 5325 for 3 days for pain management, Pepcid. He is to follow-up with primary care provider. He was instructed how to take care of wound. He is being discharged home. Pertinent positives and negatives discussed above, a complete review of systems was preformed and all the other sytems were negative. Vitals Signs Reviewed. Physical Exam: GENERAL: The patient is alert and oriented x3, not in any acute distress. Well developed, well nourished. HEENT: Pupils are round and equally reacting to light. EOMI. No scleral icterus. No conjunctival pallor. Normocephalic, atraumatic. No pharyngeal erythema. No thyromegaly. CARDIOVASCULAR: S1 and S2 present. No murmurs, rubs, or gallops. PULMONARY: Chest is clear to auscultation, no wheezing , no crackles. -ABDOMEN: Soft, nontender, nondistended, normoactive bowel sounds. No palpable organomegaly. Right buttocks incisions surrounding area with no erythema, no swelling, packing intact MUSCULOSKELETAL: No joint swelling or deformity. EXTREMITIES: No cyanosis, clubbing, or pedal edema. NEUROLOGICAL: Gross neurological examination did not reveal any focal deficits. SKIN: No rashes. no petechiae. A total of greater than 30 minutes of time were spent preparing this complex discharge summary. Patient was discharge on April 08, 2024 at 1:21 PM. Expected date of discharge: 04/08/24 Attending physician: Jerod Lugo Consults: 04/06/24 00:46 Consult Physician Urgent Consulting Provider: Alex Lindsey Consult Reason/Comments: Perirectal abscess Do you want consulting provider notified?: Already Contacted Primary care physician: Negrito Stanley Patient Condition at Discharge: Fair Plan - Discharge Summary Discharge Rx Participant: No New Discharge Prescriptions: New Amoxic-Pot Clav 875-125Mg [Augmentin 875-125] 1 tab PO BID 7 Days #14 tab HYDROcodone/APAP 5-325MG [[place] 5-325] 1 tab PO Q6HR PRN 3 Days #12 tab PRN Reason: Pain Famotidine [Pepcid] 20 mg PO HS #30 tablet Discharge Medication List Amoxic-Pot Clav 875-125Mg [Augmentin 875-125] 1 tab PO BID 7 Days #14 tab 04/07/24 [Rx] Famotidine [Pepcid] 20 mg PO HS #30 tablet 04/08/24 [Rx] HYDROcodone/APAP 5-325MG [[place] 5-325] 1 tab PO Q6HR PRN 3 Days #12 tab 04/08/24 [Rx] Follow up Appointment(s)/Referral(s): Alex Lindsey DO [Medical Doctor] - 04/15/24 9:30 am Negrito Stanley DO [Primary Care Provider] - 1-2 days Patient Instructions/Handouts: Rectal Abscess (GEN) Activity/Diet/Wound Care/Special Instructions: Wound care: wash the area daily in the shower and dry well. Discharge Disposition: HOME SELF-CARE
== END 2024-04-08 13:58 | disposition home or self-care (01) ==
LOC: EC 22:26 → 6NMEDSUR 04-06 00:12
PROVIDERS: ADMIT Hospitalist; ATTEND Hospitalist
DX: K61.1 Rectal abscess (principal); L02.31 Cutaneous abscess of buttock; M54.9 Dorsalgia, unspecified; F17.210 Nicotine dependence, cigarettes, uncomplicated; Z71.6 Tobacco abuse counseling
CPT/HCPCS: 96376 ×3; 96366 ×4; 96367; 96372 ×3; 96365; 96375; 99284; 36415; 80053; 80048 ×3; 85025 ×2; 80202; 76882; 72193; G0378 ×3; J2543; J2250; J3370 ×3; J2270 ×2; J1644 ×3; J1100; J2405; J2003 ×2; J3010; J3490 ×3; J1885 ×3; J2704; J1171; Q9967

== ENCOUNTER 2024-05-26 09:17 | Day surgery (SDC) | payer OTHER ==
[2024-05-21 14:28] VITALS: BMI 22.8
[2024-05-26 09:44] VITALS: RESP 16; TEMP 96.9
[2024-05-26] MEDS: IV FLUID CONTINUATION 1,000 ML IV ONE (09:48)
[2024-05-26] MEDS: LACTATED RINGERS 1,000 ML IV SCH (09:49)
[2024-05-26] MEDS ORDERED: PROPOFOL 10 MG/ML 20 ML VIAL IV ONE (10:22)
--- NOTE | 2024-05-26 10:39 | P.PCN ---
Date of Procedure: 05/26/24 Preoperative Diagnosis: Concern for GI bleeding Postoperative Diagnosis: Internal hemorrhoids Procedure(s) Performed: Colonoscopy Anesthesia: MAC Surgeon: Jerzy Angeles Pathology: none sent Condition: stable Disposition: same day Indications for Procedure: 43-year-old male with recent history of concern for GI bleed. States father has history of polyps. No family history of colon cancer or Crohn's disease or colitis. Risks, benefits and alternatives were provided to the patient. Operative Findings: Internal hemorrhoids Description of Procedure: The patient was brought to the endoscopy suite and placed in left lateral decubitus position and adequate sedation was achieved using conscious sedation. Digital rectal exam was performed and mild internal hemorrhoids were palpated. An endoscope was then placed in the rectum and advanced to the cecum as identified by landmarks including the appendiceal orifice and the ileocecal valve. The prep was good. The colonoscope was then slowly withdrawn, examining for any mucosal abnormalities. The cecum, ascending, transverse, descending and sigmoid colon were visualized adequately. There were no large neoplastic lesions noted throughout the colon. No obvious polyps noted throughout the co marcus. No significant evidence of diverticulosis. Hemostasis was maintained. Retroflexion was performed in the rectum and internal hemorrhoids. Excess air was removed, the colonoscope withdrawn and the procedure terminated. The patient was then transferred to the recovery unit in stable condition. Repeat colonoscopy should be performed in 10 years.
[2024-05-26 10:55] VITALS: BP 114/71; PULSE 58
== END 2024-05-26 11:09 | disposition home or self-care (01) ==
LOC: ORWHC2ENDO 09:17
PROVIDERS: ATTEND Surgery
DX: K92.2 Gastrointestinal hemorrhage, unspecified (principal); K64.8 Other hemorrhoids; F17.210 Nicotine dependence, cigarettes, uncomplicated; Z83.719 Family history of colon polyps, unspecified; Z98.890 Other specified postprocedural states
CPT/HCPCS: 45378; J2704